=== PATIENT | male | born 2000 | race Caucasian/White ===

== ENCOUNTER 2018-05-25 10:57 | Emergency (ER) | payer OTHER ==
[~2018-05-25] VITALS: Ht 188 cm; Wt 113.4 kg
[2018-05-25] MEDS ORDERED: NABUMETONE 750750 M1 PO (13:25)
[2018-05-25] MEDS ORDERED: ROBAXIN 750 MG750 M1 PO (13:25)
[2018-05-25 13:34] VITALS: BP 147/63
== END 2018-05-25 13:34 | disposition home or self-care (01) ==
LOC: M.ERS 10:57
DX: S46.812A Strain of other muscles, fascia and tendons at shoulder and upper arm level, left arm, initial encounter (principal); X58.XXXA Exposure to other specified factors, initial encounter; Y93.89 Activity, other specified; Y92.89 Other specified places as the place of occurrence of the external cause; Y99.8 Other external cause status